=== PATIENT | male | born 1995 | race Caucasian/White ===

== ENCOUNTER 2022-03-14 18:00 | Emergency (ER) | payer OTHER ==
[2022-03-14 18:20] VITALS: BP 119/64; PULSE 84; TEMP 98.6; BMI 32.3
== END 2022-03-14 19:06 | disposition home or self-care (01) ==
LOC: JERFT 18:00
DX: S59.902A Unspecified injury of left elbow, initial encounter (principal); Y35.811A Legal intervention involving manhandling, law enforcement official injured, initial encounter
CPT/HCPCS: 99281-25

== ENCOUNTER 2022-12-10 20:20 | Emergency (ER) | payer OTHER ==
[2022-12-10 20:42] VITALS: BP 140/100; PULSE 106; RESP 16; TEMP 99.2; BMI 32.3
[2022-12-10] MEDS ORDERED: BACITRACIN ZINC 15 GM TUBE TOPICAL OINTMENT TP ONE (20:47)
== END 2022-12-10 20:51 | disposition home or self-care (01) ==
LOC: FER 20:20
DX: S80.211A Abrasion, right knee, initial encounter (principal); S80.01XA Contusion of right knee, initial encounter; W19.XXXA Unspecified fall, initial encounter
CPT/HCPCS: 99282-25

== ENCOUNTER 2023-11-16 19:50 | Emergency (ER) | payer OTHER ==
[2023-11-16 19:56] VITALS: RESP 16; BMI 32.3
[2023-11-16 20:02] VITALS: BP 126/88; PULSE 79; TEMP 98.5
[2023-11-16] MEDS ORDERED: NAPROXEN 500 MG TABLET ONE (20:37)
[2023-11-16] MEDS: NAPROXEN 500 MG TABLET PO ONE (20:38)
== END 2023-11-16 20:42 | disposition home or self-care (01) ==
LOC: FER 19:50
DX: S16.1XXA Strain of muscle, fascia and tendon at neck level, initial encounter (principal); S39.012A Strain of muscle, fascia and tendon of lower back, initial encounter; M54.16 Radiculopathy, lumbar region; R20.2 Paresthesia of skin; V89.2XXA Person injured in unspecified motor-vehicle accident, traffic, initial encounter; Y93.I9 Activity, other involving external motion; Y92.410 Unspecified street and highway as the place of occurrence of the external cause
CPT/HCPCS: 99283-25

== ENCOUNTER 2024-10-22 22:37 | Emergency (ER) | payer OTHER ==
[2024-10-22 22:44] VITALS: BP 120/78; PULSE 78; RESP 18; TEMP 98.1; BMI 32.3
[2024-10-23 01:34] LABS: HIV INTERPRETATION NEGATIVE (NEGATIVE)
== END 2024-10-22 23:30 | disposition home or self-care (01) ==
LOC: FER 22:37
DX: S60.519A Abrasion of unspecified hand, initial encounter (principal); X58.XXXA Exposure to other specified factors, initial encounter; Y99.0 Civilian activity done for income or pay
CPT/HCPCS: 36415; 86803; 87389; 99283-25